=== PATIENT | female | born 2000 | race African-American/Black ===

== ENCOUNTER 2020-09-25 20:31 | Emergency (ER) | payer OTHER, SELFPAY ==
--- NOTE | ~2020-09-25 | US_ITS ---
EXAMINATION: US VENOUS ULTRASOUND WITH DOPPLER LOWER EXTREMITY, RIGHT CLINICAL INFORMATION: Right lower extremity pain COMPARISON: None TECHNIQUE: Ultrasound of the deep veins is performed from the hip to the calf with compression sonography and color and pulse Doppler assessment. Spectral analysis with color-flow imaging is performed. FINDINGS: There is normal venous compression and respiratory variation and augmented flow. The visualized common femoral vein, superficial femoral vein, profunda femoral vein, popliteal vein, and the trifurcation region shows no evidence of deep venous thrombosis. The contralateral left femoral vein appeared normal. There is no significant popliteal fossa cyst. If the patient's symptoms persist, followup ultrasound in 5 days 7 days might be of value to exclude proximal propagation from a non-visualized calf vein. US/US venous duplex LE RT IMPRESSION: No DVT demonstrated in the right lower extremity.
--- NOTE | ~2020-09-25 | XR_ITS ---
EXAMINATION: CHEST 1 VIEW CLINICAL INFORMATION: Chest discomfort. COMPARISON: None. TECHNIQUE: An AP view of the chest is provided. FINDINGS: The cardiac silhouette is not enlarged. The mediastinal and hilar contours are unremarkable. There are neither pleural effusions nor pneumothoraces. There are no consolidations. The osseous structures are unremarkable. XR/XR chest 1V IMPRESSION: No evidence for acute disease.
[2020-09-25 20:34] VITALS: BP 193/85; PULSE 77; RESP 18; TEMP 36.9; O2SAT 98; BMI 47.2
--- NOTE | 2020-09-25 21:48 | ECG_ITS ---
Test Reason : RULE OUT Blood Pressure : / mmHG Vent. Rate : 067 BPM Atrial Rate : 067 BPM P-R Int : 170 ms QRS Dur : 080 ms QT Int : 424 ms P-R-T Axes : 022 015 004 degrees QTc Int : 448 ms Normal sinus rhythm Normal ECG No previous ECGs available Referred By: Garrison Sanchez Electronically Signed By:Shailesh Mohamud
[2020-09-25 23:49] LABS: Basophils Absolute Auto 0.1 X10*3/uL (0.0-0.2); Basophils Percent Auto 0.5 % (0-2); Lymphocytes Absolute Auto 5.3 X10*3/uL (1.2-4.9); MANUAL DIFF FLAG SCAN; PLT CLUMP 1; SCAN SMEAR FLAG 1
[2020-09-25 23:51] LABS: Eosinophils Absolute Auto 0.2 X10*3/uL (0.0-0.4); Eosinophils Percent Auto 1.6 % (0-4); Hemoglobin 13.1 g/dl (12.0-16.0); Imm Gran Abs Auto 0.02 X10*3/uL (0.00-0.03); Imm Gran Pct Auto 0.2 % (0.0-0.4); Lymphocytes Percent Auto 51.5 % (20-40); Mean Corpuscular HGB Conc 32.8 g/dl (31.0-35.0); Mean Corpuscular Hemoglobin 27.4 pg (27.0-33.0); Mean Corpuscular Volume 83.7 fL (80-98); Mean Platelet Volume 10.6 fL (9.4-12.3); Monocytes Absolute Auto 0.5 X10*3/uL (0.1-1.2); Neutrophils Absolute Auto 4.3 X10*3/uL (2.0-8.3); Neutrophils Percent Auto 41.2 % (45-73); Platelet Count 276 X10*3/uL (160-400); Red Blood Count 4.78 X10*6/uL (4.20-5.50); Red Cell Distribution Width 12.3 % (11.0-16.0); White Blood Count 10.4 X10*3/uL (4.8-10.8)
[2020-09-25 23:56] LABS: Prothrombin Time 11.7 SEC (10.8-13.0)
[2020-09-25 23:58] LABS: Partial Thromboplastin Time 28.2 SEC (24.1-38.0)
[2020-09-26 00:08] LABS: SLIDE REVIEW VERIFIED
[2020-09-26 00:21] LABS: Alanine Aminotransferase 26 U/L (0-31); Albumin Level 4.3 g/dL (3.5-5.0); Alkaline Phosphatase 58 U/L (39-117); Anion Gap 14 (12-20); Aspartate Amino Transferase 15 U/L (5-31); Bilirubin Total 0.5 mg/dL (0.0-1.0); Blood Urea Nitrogen 13 mg/dL (9-16); Calcium 9.2 mg/dL (8.4-10.2); Carbon Dioxide 23 mmol/L (22-29); Chloride 106 mmol/L (96-108); Creatinine Clr Calc Pharmacy 181.6; Estimated Glomerular Filt Rate > 60; Glucose Random 88 mg/dL (60-115); Potassium 4.1 mmol/L (3.3-5.1); Sodium 139 mmol/L (135-145); Total Protein 6.9 g/dL (6.5-8.0)
[2020-09-26 00:24] LABS: Troponin-I High Sensitivity < 3.5 ng/L (<3.5-17.0)
[2020-09-26 00:27] LABS: HCG Quantitative < 2 mIU/mL
[2020-09-26 01:16] VITALS: BP 153/81; PULSE 65; RESP 18; TEMP 36.9; O2SAT 98
[2020-09-26 01:21] LABS: D Dimer < 200 NG/ML
--- NOTE | 2020-09-26 02:05 | ED.GENADULT ---
HPI - General Adult General Chief complaint: Extremity Problem Stated complaint: Leg pain Time Seen by Provider: 09/25/20 22:07 Source: patient Mode of arrival: ambulatory Limitations: no limitations History of Present Illness HPI narrative: Patient presents to ED for right calf/cramping pain and also posterior right thigh pain tingling down leg for the past 2 days. Patient states also stating yesterday having some strange feeling in her chest not really pain but more tightness/palpitations. Patient thought maybe was more due to anxiety. Patient denies any shortness of breath, coughing up blood, fever, chills, or any recent trauma to lower extremities or chest. Related Data Allergies Allergy/AdvReac Type Severity Reaction Status Date / Time No Known Allergies Allergy Verified 09/25/20 20:38 Review of Systems Review of Systems: Yes all other systems are reviewed and are negative Constitutional: Constitutional: Reports as per HPI and Reports no additional constitutional complaints Eyes: Eyes: Reports as per HPI and Reports no additional eye complaints ENT: Reports system reviewed and no additional complaints, except as documented and Reports as per HPI Cardiovascular: Cardiovascular: Reports as per HPI and Reports no additional cardiovascular complaints Comments: Chest discomfort Respiratory: Respiratory: Reports as per HPI and Reports no additional respiratory complaints Gastrointestinal: Gastrointestinal: Reports as per HPI and Reports no additional gastrointestinal complaints Genitourinary: Genitourinary: Reports no additional female genitourinary complaints and Reports as per HPI Musculoskeletal: Musculoskeletal: Reports no additional musculoskeletal complaints and Reports as per HPI Neurologic: Reports system reviewed and no additional complaints, except as documented and Reports as per HPI Psychiatric: Psychiatric: Reports no additional psychiatric complaints and Reports as per HPI [facility] Social History Social History Alcohol intake: never Smoking Status: Current every day smoker Substance Use Type: Former Substance User Advance Directives: No Advance Directives Information Provided: No Physical Exam Vital Signs: Vital Signs: Last Vital Signs Temp 98.5 F 09/26/20 01:16 Pulse 65 09/26/20 01:16 Resp 18 09/26/20 01:16 BP 153/81 H 09/26/20 01:16 Pulse Ox 98 09/26/20 01:16 Body Mass Index 47.2 Const: General: cooperative, healthy appearing, comfortable, no acute distress, well developed, alert, awake and Physically active Orientation/consciousness: patient oriented x3 HENMT: Head: Yes normal to inspection, Yes No palpable skull fracture present, Yes normocephalic and Yes atraumatic Eyes: General: appearance normal, both eyes and all related structures Neck: Neck: Yes normal visual inspection, Yes full ROM, Yes no lymphadenopathy, Yes no meningeal signs, Yes trachea midline, Yes supple and No tender Chest: Chest palpation & inspection: normal inspection of the chest and normal palpation of entire chest wall Resp: Effort & Inspection: normal respiratory effort and able to speak in complete sentences Auscultation: clear to auscultation bilaterally Cardio: Jugular venous distension: no JVD Heart sounds: S1 normal heart sound present and S2 normal heart sound present GI: Inspection: Yes normal to inspection and No abdominal wall ecchymosis Palpation (GI): Soft to palpation, not firm, nontender, no guarding and not rigid : General: No CVA tenderness and Yes no CVA tenderness Back/Spine/Pelvis: Back: no CVA tenderness, No CVA tenderness and No back tenderness Skin: General skin exam: no rashes or lesions noted and elasticity normal Neuro: General: patient oriented x3, no meningeal signs and CN's II-XI intact bilaterally Cranial nerves: Yes CN's II-XII intact bilaterally Extrem: Other: Right lower extremity negative for any calf pain/redness/swelling/pitting edema. Pedal pulses intact. Negative for any ecchymosis or crepitus to indicate any trauma General: Yes normal to inspection and Yes full ROM Psych: Appearance: grossly normal, well kempt and not disheveled Course Course Course Narrative: Due to patient stating right calf pain patient will be sent for ultrasound to rule out DVT. Patient also EKG, chest x-ray and troponin. Reevaluation(s) Reevaluation #1: Patient's troponin came back negative. D-dimer negative. Perc score 0. Ultrasound of lower extremity negative for DVT. Chest x-ray negative for pneumonia. Medical Decision Making MDM Narrative Medical decision making narrative: Sciatica. Chest pain Lab Data Result diagrams: 09/25/20 23:44 09/25/20 23:44 Labs: Lab Results 09/25/20 09/25/20 09/25/20 Range/Units 23:44 23:44 23:44 WBC 10.4 (4.8-10.8) X10*3/uL RBC 4.78 (4.20-5.50) X10*6/uL Hgb 13.1 (12.0-16.0) g/dl Hct 40.0 (37-47) % MCV 83.7 (80-98) fL MCH 27.4 (27.0-33.0) pg MCHC 32.8 (31.0-35.0) g/dl RDW 12.3 (11.0-16.0) % Plt Count 276 (160-400) X10*3/uL MPV 10.6 (9.4-12.3) fL Immature Gran % (Auto) 0.2 (0.0-0.4) % Neut % (Auto) 41.2 L (45-73) % Lymph % (Auto) 51.5 H (20-40) % Sandoval % (Auto) 5.0 (2-11) % Eos % (Auto) 1.6 (0-4) % Baso % (Auto) 0.5 (0-2) % Lymph # (Auto) 5.3 H (1.2-4.9) X10*3/uL Sandoval # (Auto) 0.5 (0.1-1.2) X10*3/uL Eos # (Auto) 0.2 (0.0-0.4) X10*3/uL Baso # (Auto) 0.1 (0.0-0.2) X10*3/uL Abs Immat Gran (auto) 0.02 (0.00-0.03) X10*3/uL Absolute Neuts (auto) 4.3 (2.0-8.3) X10*3/uL Absolute Nucleated RBC 0.000 (0.0-0.012) X10*3/uL Nucleated RBC % (auto) 0.0 (0.0-0.2) /100WBC Smear Tech's Comments VERIFIED PT 11.7 (10.8-13.0) SEC INR 1.0 (0.9-1.1) APTT 28.2 (24.1-38.0) SEC D-Dimer TNP Sodium (135-145) mmol/L Potassium (3.3-5.1) mmol/L Chloride (96-108) mmol/L Carbon Dioxide (22-29) mmol/L Anion Gap (12-20) BUN (9-16) mg/dL Creatinine (0.5-1.4) mg/dL Estim Creat Clear Calc Estimated GFR Random Glucose (60-115) mg/dL Calcium (8.4-10.2) mg/dL Total Bilirubin (0.0-1.0) mg/dL AST (5-31) U/L ALT (0-31) U/L Alkaline Phosphatase (39-117) U/L Troponin I High Sens < 3.5 (<3.5-17.0) ng/L Total Protein (6.5-8.0) g/dL Albumin (3.5-5.0) g/dL Beta HCG, Quant mIU/mL 09/25/20 09/26/20 Range/Units 23:44 01:06 WBC (4.8-10.8) X10*3/uL RBC (4.20-5.50) X10*6/uL Hgb (12.0-16.0) g/dl Hct (37-47) % MCV (80-98) fL MCH (27.0-33.0) pg MCHC (31.0-35.0) g/dl RDW (11.0-16.0) % Plt Count (160-400) X10*3/uL MPV (9.4-12.3) fL Immature Gran % (Auto) (0.0-0.4) % Neut % (Auto) (45-73) % Lymph % (Auto) (20-40) % Sandoval % (Auto) (2-11) % Eos % (Auto) (0-4) % Baso % (Auto) (0-2) % Lymph # (Auto) (1.2-4.9) X10*3/uL Sandoval # (Auto) (0.1-1.2) X10*3/uL Eos # (Auto) (0.0-0.4) X10*3/uL Baso # (Auto) (0.0-0.2) X10*3/uL Abs Immat Gran (auto) (0.00-0.03) X10*3/uL Absolute Neuts (auto) (2.0-8.3) X10*3/uL Absolute Nucleated RBC (0.0-0.012) X10*3/uL Nucleated RBC % (auto) (0.0-0.2) /100WBC Smear Tech's Comments PT (10.8-13.0) SEC INR (0.9-1.1) APTT (24.1-38.0) SEC D-Dimer < 200 Sodium 139 (135-145) mmol/L Potassium 4.1 (3.3-5.1) mmol/L Chloride 106 (96-108) mmol/L Carbon Dioxide 23 (22-29) mmol/L Anion Gap 14 (12-20) BUN 13 (9-16) mg/dL Creatinine 0.75 (0.5-1.4) mg/dL Estim Creat Clear Calc 181.6 Estimated GFR > 60 Random Glucose 88 (60-115) mg/dL Calcium 9.2 (8.4-10.2) mg/dL Total Bilirubin 0.5 (0.0-1.0) mg/dL AST 15 (5-31) U/L ALT 26 (0-31) U/L Alkaline Phosphatase 58 (39-117) U/L Troponin I High Sens (<3.5-17.0) ng/L Total Protein 6.9 (6.5-8.0) g/dL Albumin 4.3 (3.5-5.0) g/dL Beta HCG, Quant < 2 mIU/mL ECG Data Interpretation: Normal sinus rhythm. Normal EKG. Ventricular rate 67. Pr interval 170. QRS 80. QTC 448. Negative STEMI Discharge Plan Discharge Clinical Impression: Acute leg pain, Sciatica, Chest pain Patient Disposition: Home, Self-Care Instructions: Chest Pain (ED), Sciatica (ED), Leg Pain (ED) Additional Instructions: Return to the ED immediately for any chest pain, shortness of breath swelling of lower extremity, calf pain, redness, coughing up blood, fever, chills, or any other concerning symptoms. you can take [id number] Motrin/Aleve/Tylenol. Please follow-up with PCP. Ultrasound negative for DVT. Chest x-ray negative for pneumonia. Troponin negative. D-dimer negative. EKG normal Blood pressure was elevated during the ED visit improved without medication. please follow-up with PCP Print Language: Chinese
== END 2020-09-26 03:12 | disposition home or self-care (01) ==
PROVIDERS: Physician Assistant; Emergency Provider Emergency Medicine Emergency Medical Services
DX: M79.604 Pain in right leg (principal); M54.32 Sciatica, left side; M54.31 Sciatica, right side; R07.9 Chest pain, unspecified; R60.0 Localized edema; F17.200 Nicotine dependence, unspecified, uncomplicated; Z71.6 Tobacco abuse counseling
CPT/HCPCS: 36415; 71045; 80053; 84484; 84702; 85025; 85379; 85610; 85730; 93005; 93971; 99284

== ENCOUNTER 2020-11-25 14:14 | Emergency (ER) | payer OTHER, SELFPAY ==
--- NOTE | ~2020-11-25 | XR_ITS ---
EXAMINATION: XR CHEST CLINICAL INFORMATION: Chest pain COMPARISON: Previous chest x-ray August 2020 TECHNIQUE: Frontal view of the chest was obtained. FINDINGS: No significant abnormality is noted involving the heart, lungs, mediastinum, bony thorax or soft tissues. XR/XR chest 1V IMPRESSION: Unremarkable examination.
--- NOTE | 2020-11-25 14:27 | ECG_ITS ---
Test Reason : HEART PALPITATION Blood Pressure : / mmHG Vent. Rate : 080 BPM Atrial Rate : 080 BPM P-R Int : 162 ms QRS Dur : 072 ms QT Int : 366 ms P-R-T Axes : 049 031 008 degrees QTc Int : 422 ms Normal sinus rhythm Normal ECG When compared with ECG of 26-SEP-2020 02:42, No significant change was found Referred By: Generic ED Physician Electronically Signed By:FEROZ UGARTE
[2020-11-25 14:50] VITALS: BP 132/79; PULSE 81; RESP 18; TEMP 36.2; O2SAT 100; BMI 46.9
[2020-11-25 17:32] LABS: MANUAL DIFF FLAG NO
[2020-11-25 17:45] LABS: Basophils Absolute Auto 0.1 X10*3/uL (0.0-0.2); Basophils Percent Auto 0.5 % (0-2); Eosinophils Absolute Auto 0.1 X10*3/uL (0.0-0.4); Eosinophils Percent Auto 1.1 % (0-4); Hematocrit 39.9 % (37-47); Hemoglobin 12.9 g/dl (12.0-16.0); Imm Gran Abs Auto 0.04 X10*3/uL (0.00-0.03); Imm Gran Pct Auto 0.4 % (0.0-0.4); Lymphocytes Absolute Auto 3.9 X10*3/uL (1.2-4.9); Lymphocytes Percent Auto 36.2 % (20-40); Mean Corpuscular HGB Conc 32.3 g/dl (31.0-35.0); Mean Corpuscular Hemoglobin 27.2 pg (27.0-33.0); Mean Corpuscular Volume 84.2 fL (80-98); Mean Platelet Volume 10.9 fL (9.4-12.3); Monocytes Absolute Auto 0.5 X10*3/uL (0.1-1.2); Monocytes Percent Auto 5.1 % (2-11); Neutrophils Absolute Auto 6.1 X10*3/uL (2.0-8.3); Neutrophils Percent Auto 56.7 % (45-73); Platelet Count 399 X10*3/uL (160-400); Red Blood Count 4.74 X10*6/uL (4.20-5.50); Red Cell Distribution Width 12.6 % (11.0-16.0); White Blood Count 10.7 X10*3/uL (4.8-10.8)
--- NOTE | 2020-11-25 17:50 | ED.CHESTPAIN ---
HPI - Chest Pain General Chief Complaint: Chest Pain Stated Complaint: chest pain Time Seen by Provider: 11/25/20 17:50 Source: patient Mode of arrival: ambulatory Limitations: no limitations History of Present Illness HPI narrative: Patient is 20 years old with no significant past medical history obese weighing 144 kg comes here for left-sided chest pain for last few days tender to palpation get worse when taking a deep breath or touches no fever no cough no shortness of breath. No family history of sudden cardiac or [place] at younger age no use of cocaine Related Data Previous Rx's Medication Instructions Recorded ibuprofen 600 mg PO Q6H PRN #20 tab 11/25/20 Allergies Allergy/AdvReac Type Severity Reaction Status Date / Time No Known Allergies Allergy Verified 09/25/20 20:38 Review of Systems Review of Systems: Constitutional : No Weight loss, No Fever, No Chills ENT/Mouth : No sore throat, No Rhinorrhea Eyes: No Eye Pain, No Swelling Cardiovascular : + Chest Pain, no palpitations Respiratory : No Cough, No Sputum, no shortness of breath Gastrointestinal : no Nausea, No Vomiting, No Diarrhea, No abdominal Pain, no black stools Genitourinary : No Dysuria, No Urinary Frequency Musculoskeletal : No joint pain, No Myalgias, No Joint Swelling Skin : No Skin Lesions, No rash Neuro : No Weakness, No Numbness, No Dizziness, No Headache Psych : No Anxiety/Panic, No Depression Heme/Lymph: No Bruising, No Lymphadenopathy Endocrine : No Polyuria, No Polydipsia All other systems reviewed and are negative PMFSH Past Medical History Medical History Patient denies medical problems Social History Social History Alcohol intake: never Substance Use Type: Former Substance User Advance Directives: No Advance Directives Information Provided: Yes Patient : No Physical Exam Vital Signs: Vital Signs: Last Vital Signs Temp 97.2 F 11/25/20 14:50 Pulse 81 11/25/20 14:50 Resp 18 11/25/20 14:50 BP 132/79 11/25/20 14:50 Pulse Ox 100 11/25/20 14:50 Body Mass Index 46.9 Appearance: Alert. Oriented X3. No acute distress. Eyes: PERRLA, No Nystagmus ENT: Pharynx normal. Oral Mucosa moist Neck: Normal inspection. Neck supple. CVS: Normal heart rate and rhythm. Pulses normal. Left chest wall tenderness+ Respiratory: No respiratory distress. Equal air entry bilateral, no wheezing/rales/rhonchi Abdomen: Soft and nontender. Bowel sounds are present, no mass palpable, no CVA tenderness Skin: Skin warm and dry. Normal skin color. Normal skin turgor. Extremities: No lower extremity edema. No calf tenderness Neuro: Oriented X 3. No motor deficit. No sensory deficit.No cerebellar signs , cranial nerves II-XII intact MDM - Chest Pain Lab Data Attestation: I reviewed the patient's lab results. Result diagrams: 11/25/20 17:10 11/25/20 17:10 Labs: Lab Results 11/25/20 11/25/20 Range/Units 17:10 17:10 WBC 10.7 (4.8-10.8) X10*3/uL RBC 4.74 (4.20-5.50) X10*6/uL Hgb 12.9 (12.0-16.0) g/dl Hct 39.9 (37-47) % MCV 84.2 (80-98) fL MCH 27.2 (27.0-33.0) pg MCHC 32.3 (31.0-35.0) g/dl RDW 12.6 (11.0-16.0) % Plt Count 399 D (160-400) X10*3/uL MPV 10.9 (9.4-12.3) fL Immature Gran % (Auto) 0.4 (0.0-0.4) % Neut % (Auto) 56.7 (45-73) % Lymph % (Auto) 36.2 (20-40) % Lewis % (Auto) 5.1 (2-11) % Eos % (Auto) 1.1 (0-4) % Baso % (Auto) 0.5 (0-2) % Lymph # (Auto) 3.9 (1.2-4.9) X10*3/uL Lewis # (Auto) 0.5 (0.1-1.2) X10*3/uL Eos # (Auto) 0.1 (0.0-0.4) X10*3/uL Baso # (Auto) 0.1 (0.0-0.2) X10*3/uL Abs Immat Gran (auto) 0.04 H (0.00-0.03) X10*3/uL Absolute Neuts (auto) 6.1 (2.0-8.3) X10*3/uL Absolute Nucleated RBC 0.000 (0.0-0.012) X10*3/uL Nucleated RBC % (auto) 0.0 (0.0-0.2) /100WBC Hold Blue Top SEE NOTE ECG Data ECG #1: Attestation: I personally reviewed and interpreted this ECG as follows: Interpretation: Normal sinus rhythm with heart rate 80 beats per minute normal intervals normal axis no acute ischemia Discharge Plan Discharge Clinical Impression: Acute costochondritis Patient Disposition: Home, Self-Care Instructions: Costochondritis (ED) Additional Instructions: Take ibuprofen as advised Prescriptions: New ibuprofen 600 mg tablet 600 mg PO Q6H PRN (Reason: pain) Qty: 20 RF: 0
[2020-11-25 18:05] LABS: Anion Gap 13 (12-20); Blood Urea Nitrogen 13 mg/dL (9-16); Calcium 9.7 mg/dL (8.4-10.2); Carbon Dioxide 23 mmol/L (22-29); Chloride 109 mmol/L (96-108); Creatinine Clr Calc Pharmacy 183.3; Estimated Glomerular Filt Rate > 60; Glucose Random 90 mg/dL (60-115); Potassium 4.1 mmol/L (3.3-5.1); Sodium 141 mmol/L (135-145)
[2020-11-25 18:10] LABS: Troponin-I High Sensitivity < 3.5 ng/L (<3.5-17.0)
--- NOTE | 2020-11-25 18:15 | PC.NURSE ---
Patient left before discharge instructions paperwork could be given.
== END 2020-11-25 18:15 | disposition home or self-care (01) ==
PROVIDERS: Emergency Provider Internal Medicine
DX: M94.0 Chondrocostal junction syndrome [Tietze] (principal); E66.9 Obesity, unspecified; F17.210 Nicotine dependence, cigarettes, uncomplicated
CPT/HCPCS: 36415; 71045; 80048; 84484; 85025; 93005; 99283

== ENCOUNTER 2020-11-26 12:31 | Emergency (ER) | payer OTHER, SELFPAY ==
--- NOTE | 2020-11-26 | ECG_ITS ---
Test Reason : CP Blood Pressure : / mmHG Vent. Rate : 070 BPM Atrial Rate : 070 BPM P-R Int : 158 ms QRS Dur : 072 ms QT Int : 396 ms P-R-T Axes : 035 035 013 degrees QTc Int : 427 ms Normal sinus rhythm with sinus arrhythmia Normal ECG When compared with ECG of 25-NOV-2020 14:27, No significant change was found Referred By: Generic ED Physician Electronically Signed By:FEROZ UGARTE
[2020-11-26 12:50] VITALS: BP 128/88; PULSE 83; RESP 19; TEMP 35.9; O2SAT 99; BMI 47.2
--- NOTE | 2020-11-26 14:17 | ED_ITS ---
HPI - General Adult General Chief complaint: General Medical Stated complaint: mutiple complaints Time Seen by Provider: 11/26/20 13:59 Source: patient Mode of arrival: ambulatory Limitations: no limitations History of Present Illness HPI narrative: 20-year-old female morbidly obese here with complaints of intermittent chest pain with associated palpitations which occur with activity x3 days. Also complaining of pain which has been intermittent for several months to years which feels similar but she does state that this is been occurring more frequently in the last 3 days. She is also complaining of intermittent numbness and tingling in her hands and feet some cramps in her lower legs bilaterally. No associated nausea, vomiting, diaphoresis, shortness of breath or cough. No recent travel or sick contacts. No family history of SCD. No family history of blood clots. No ICP use. Patient does admit to anxiety/stress over the last year with the pandemic. Does not currently have a primary care doctor. Seen here yesterday for same and diagnosed with costochondritis ever having a chest x-ray, EKG and labs. Related Data Previous Rx's Medication Instructions Recorded ibuprofen 600 mg PO Q6H PRN #20 tab 11/25/20 Allergies Allergy/AdvReac Type Severity Reaction Status Date / Time No Known Allergies Allergy Verified 09/25/20 20:38 Review of Systems Review of Systems: Yes all other systems are reviewed and are negative Constitutional: Constitutional: Reports no additional constitutional complaints, Denies body ache(s), Denies chills, Denies fever(s), Denies headache(s) and Denies weakness Eyes: Eyes: Reports no additional eye complaints and Denies change in vision ENT: Reports system reviewed and no additional complaints, except as docum ented, Denies dizziness, Denies headache(s), Denies nasal congestion, Denies nasal discharge and Denies neck pain Cardiovascular: Cardiovascular: Reports no additional cardiovascular complaints, Reports chest pain, Denies leg edema, Reports palpitations and Denies dyspnea Respiratory: Respiratory: Reports no additional respiratory complaints, Denies cough and Denies dyspnea Gastrointestinal: Gastrointestinal: Reports no additional gastrointestinal complaints, Denies abdominal pain, Denies diarrhea, Denies nausea and Denies vomiting Genitourinary: Genitourinary: Reports no additional female genitourinary complaints and Denies urinary incontinence Musculoskeletal: Musculoskeletal: Reports no additional musculoskeletal complaints, Denies back pain, Denies arthralgias, Denies joint swelling, Reports muscle cramps, Denies neck pain, Reports numbness and Denies tingling Integumentary/Breasts: Skin/Breast: Reports system reviewed and no additional complaints, except as docu and Denies rash Neurologic: Reports system reviewed and no additional complaints, except as documented, Denies Abnormal speech present, Denies dizziness, Denies headache(s), Reports numbness, Denies tingling and Denies weakness Endocrine: Endocrine: Reports palpitations PMFSH Past Medical History Attestation statement: The following information was validated with the patient. Source: old records reviewed and nursing notes reviewed Medical History Patient denies medical problems Social History Social History Alcohol intake: never Patient Tobacco Use Status: Current everyday Tobacco user Smoked in Last 30 Days: Yes Use of substances other than those prescribed or required for medical reasons: No Substance Use Type: Former Substance User Advance Directives: Yes Advance Directives Information Provided: Yes Advance Directives on File: No Patient : No Physical Exam Vital Signs: Vital Signs: Last Vital Signs Temp 98.7 F 11/26/20 15:09 Pulse 66 11/26/20 15:09 Resp 20 11/26/20 15:09 BP 127/73 11/26/20 15:09 Pulse Ox 99 11/26/20 15:09 Body Mass Index 47.2 Const: General: cooperative, healthy appearing, comfortable and no acute distress Orientation/consciousness: patient oriented x3 Limitations: no limitations HENMT: Head: Yes normal to inspection Ears: hearing grossly normal bilater ally General nose exam: Normal external nose present Face and sinus: Yes normal facial exam Mouth: Normal oral and palatal mucosa present Throat: Yes posterior oropharynx normal Eyes: General: appearance normal, both eyes and all related structures Pupils: Equal, round and reactive pupils present Neck: Neck: Yes normal visual inspection Chest: Other: Left chest tender to palpate Chest palpation & inspection: normal inspection of the chest Resp: Effort & Inspection: normal respiratory effort Auscultation: clear to auscultation bilaterally Cardio: Rate: regular rate Rhythm: regular rhythm Peripheral pulses: Peripheral pulses 2+ throughout GI: Inspection: Yes normal to inspection Palpation (GI): Soft to palpation and nontender Auscultation: normal bowel sounds Back/Spine/Pelvis: Thoracic/Lumbar Spine: thoracic and lumbar spine normal to inspection Skin: General skin exam: no rashes or lesions noted Neuro: General: patient oriented x3, no focal motor deficits and normal sensation to monofilament Cranial nerves: Yes Equal, round and reactive pupils present Cognition (Neuro): normal cognition Speech: No Abnormal speech present Gait exam (Neuro): Normal gait present Motor exam (neuro): 5/5 motor strength present throughout Extrem: General: Yes normal to inspection, Yes no pedal edema and Yes no calf tenderness Course Course Course Narrative: 20-year-old female here with left-sided chest discomfort which is reproducible with associated palpitations which occurs with movement over the last 3 days although it appears this is been going on for much longer. Patient also complaining of some numbness in the hands and feet with associated symptoms as well as muscle cramps. Seems more consistent with anxiety. Patient was seen here yesterday with negative x-ray, EKG and labs. Diagnosed with costochondritis and sent home. Will need labs, EKG. 1540-EKG shows no ischemic changes. Labs are all unremarkable. Discussed findings with the patient. I recommended she follow-up with her primary care doctor for further testing is needed. Reviewed worrisome signs and symptoms and when to return to the emergency department. Comfortable discharge home. Medical Decision Making MDM Narrative Medical decision making narrative: Less likely ACS with symptoms greater than 3 days with negative troponin and EKG Left likely PE with negative D-dimer and negative PERC score Medical Records Medical records reviewed: Yes I reviewed the patient's medical records. Lab Data Lab results reviewed: Yes I reviewed the patient's lab results. Result diagrams: 11/26/20 14:18 11/26/20 14:18 Labs: Lab Results 11/26/20 11/26/20 11/26/20 Range/Units 14:18 14:18 14:18 WBC 9.4 (4.8-10.8) X10*3/uL RBC 4.66 (4.20-5.50) X10*6/uL Hgb 12.8 (12.0-16.0) g/dl Hct 39.4 (37-47) % MCV 84.5 (80-98) fL MCH 27.5 (27.0-33.0) pg MCHC 32.5 (31.0-35.0) g/dl RDW 12.5 (11.0-16.0) % Plt Count 420 H (160-400) X10*3/uL MPV 9.9 (9.4-12.3) fL Immature Gran % (Auto) 0.2 (0.0-0.4) % Neut % (Auto) 56.6 (45-73) % Lymph % (Auto) 36.6 (20-40) % Mccone % (Auto) 4.9 (2-11) % Eos % (Auto) 1.2 (0-4) % Baso % (Auto) 0.5 (0-2) % Lymph # (Auto) 3.4 (1.2-4.9) X10*3/uL Mccone # (Auto) 0.5 (0.1-1.2) X10*3/uL Eos # (Auto) 0.1 (0.0-0.4) X10*3/uL Baso # (Auto) 0.1 (0.0-0.2) X10*3/uL Abs Immat Gran (auto) 0.02 (0.00-0.03) X10*3/uL Absolute Neuts (auto) 5.3 (2.0-8.3) X10*3/uL Absolute Nucleated RBC 0.000 (0.0-0.012) X10*3/uL Nucleated RBC % (auto) 0.0 (0.0-0.2) /100WBC D-Dimer < 200 NG/ML Sodium 141 (135-145) mmol/L Potassium 4.0 (3.3-5.1) mmol/L Chloride 109 H (96-108) mmol/L Carbon Dioxide 22 (22-29) mmol/L Anion Gap 14 (12-20) BUN 14 (9-16) mg/dL Creatinine 0.76 (0.5-1.4) mg/dL Estim Creat Clear Calc 179.2 Estimated GFR > 60 Random Glucose 85 (60-115) mg/dL Calcium 9.3 (8.4-10.2) mg/dL Magnesium 2.0 (1.6-2.6) mg/dL Total Bilirubin 0.5 (0.0-1.0) mg/dL Direct Bilirubin 0.2 (0.0-0.5) mg/dL AST 13 (5-31) U/L ALT 23 (0-31) U/L Alkaline Phosphatase 71 D (39-117) U/L Troponin I High Sens (<3.5-17.0) ng/L Total Protein 7.1 (6.5-8.0) g/dL Albumin 4.4 (3.5-5.0) g/dL TSH 1.19 (0.32-4.0) uIU/mL 11/26/20 Range/Units 14:18 WBC (4.8-10.8) X10*3/uL RBC (4.20-5.50) X10*6/uL Hgb (12.0-16.0) g/dl Hct (37-47) % MCV (80-98) fL MCH (27.0-33.0) pg MCHC (31.0-35.0) g/dl RDW (11.0-16.0) % Plt Count (160-400) X10*3/uL MPV (9.4-12.3) fL Immature Gran % (Auto) (0.0-0.4) % Neut % (Auto) (45-73) % Lymph % (Auto) (20-40) % Mccone % (Auto) (2-11) % Eos % (Auto) (0-4) % Baso % (Auto) (0-2) % Lymph # (Auto) (1.2-4.9) X10*3/uL Mccone # (Auto) (0.1-1.2) X10*3/uL Eos # (Auto) (0.0-0.4) X10*3/uL Baso # (Auto) (0.0-0.2) X10*3/uL Abs Immat Gran (auto) (0.00-0.03) X10*3/uL Absolute Neuts (auto) (2.0-8.3) X10*3/uL Absolute Nucleated RBC (0.0-0.012) X10*3/uL Nucleated RBC % (auto) (0.0-0.2) /100WBC D-Dimer NG/ML Sodium (135-145) mmol/L Potassium (3.3-5.1) mmol/L Chloride (96-108) mmol/L Carbon Dioxide (22-29) mmol/L Anion Gap (12-20) BUN (9-16) mg/dL Creatinine (0.5-1.4) mg/dL Estim Creat Clear Calc Estimated GFR Random Glucose (60-115) mg/dL Calcium (8.4-10.2) mg/dL Magnesium (1.6-2.6) mg/dL Total Bilirubin (0.0-1.0) mg/dL Direct Bilirubin (0.0-0.5) mg/dL AST (5-31) U/L ALT (0-31) U/L Alkaline Phosphatase (39-117) U/L Troponin I High Sens < 3.5 (<3.5-17.0) ng/L Total Protein (6.5-8.0) g/dL Albumin (3.5-5.0) g/dL TSH (0.32-4.0) uIU/mL ECG Data Attestation: I personally reviewed and interpreted this ECG as follows: Interpretation: Normal sinus rhythm with a rate of 70, normal [place], normal QRS, normal QT Discharge Plan Discharge Clinical Impression: Atypical chest pain Patient Disposition: Home, Self-Care Instructions: Chest Pain (ED) Additional Instructions: Your test all looked normal today Follow up with the primary care doctor as he may need additional testing done. Limit caffeine intake Prescriptions: No Action ibuprofen 600 mg tablet 600 mg PO Q6H PRN (Reason: pain) Qty: 20 RF: 0 Referrals: Physician,Unknown [Primary Care Provider] - 2 days Interventions: ED Discharge Assessment Last Done: 11/26/20 15:31 Discharge Date/Time: 11/26/20 15:31
[2020-11-26 14:22] LABS: MANUAL DIFF FLAG NO
[2020-11-26 14:26] LABS: Basophils Absolute Auto 0.1 X10*3/uL (0.0-0.2); Basophils Percent Auto 0.5 % (0-2); Eosinophils Absolute Auto 0.1 X10*3/uL (0.0-0.4); Eosinophils Percent Auto 1.2 % (0-4); Hematocrit 39.4 % (37-47); Hemoglobin 12.8 g/dl (12.0-16.0); Imm Gran Abs Auto 0.02 X10*3/uL (0.00-0.03); Imm Gran Pct Auto 0.2 % (0.0-0.4); Lymphocytes Absolute Auto 3.4 X10*3/uL (1.2-4.9); Lymphocytes Percent Auto 36.6 % (20-40); Mean Corpuscular HGB Conc 32.5 g/dl (31.0-35.0); Mean Corpuscular Hemoglobin 27.5 pg (27.0-33.0); Mean Corpuscular Volume 84.5 fL (80-98); Mean Platelet Volume 9.9 fL (9.4-12.3); Monocytes Absolute Auto 0.5 X10*3/uL (0.1-1.2); Monocytes Percent Auto 4.9 % (2-11); Neutrophils Absolute Auto 5.3 X10*3/uL (2.0-8.3); Neutrophils Percent Auto 56.6 % (45-73); Platelet Count 420 X10*3/uL (160-400); Red Blood Count 4.66 X10*6/uL (4.20-5.50); Red Cell Distribution Width 12.5 % (11.0-16.0); White Blood Count 9.4 X10*3/uL (4.8-10.8)
[2020-11-26 14:38] LABS: D Dimer < 200 NG/ML
[2020-11-26 14:54] LABS: Alanine Aminotransferase 23 U/L (0-31); Albumin Level 4.4 g/dL (3.5-5.0); Alkaline Phosphatase 71 U/L (39-117); Anion Gap 14 (12-20); Aspartate Amino Transferase 13 U/L (5-31); Bilirubin Direct 0.2 mg/dL (0.0-0.5); Bilirubin Total 0.5 mg/dL (0.0-1.0); Blood Urea Nitrogen 14 mg/dL (9-16); Calcium 9.3 mg/dL (8.4-10.2); Carbon Dioxide 22 mmol/L (22-29); Chloride 109 mmol/L (96-108); Creatinine Clr Calc Pharmacy 179.2; Estimated Glomerular Filt Rate > 60; Glucose Random 85 mg/dL (60-115); Sodium 141 mmol/L (135-145); Total Protein 7.1 g/dL (6.5-8.0)
[2020-11-26 15:00] LABS: Troponin-I High Sensitivity < 3.5 ng/L (<3.5-17.0)
[2020-11-26 15:09] VITALS: BP 127/73; PULSE 66; RESP 20; TEMP 37.1; O2SAT 99
[2020-11-26 15:14] LABS: Thyroid Stimulating Hormone 1.19 uIU/mL (0.32-4.0)
== END 2020-11-26 15:31 | disposition home or self-care (01) ==
PROVIDERS: Nurse Practitioner Family; Emergency Provider Emergency Medicine Emergency Medical Services
DX: R07.89 Other chest pain (principal); R00.2 Palpitations; R25.2 Cramp and spasm; F17.200 Nicotine dependence, unspecified, uncomplicated; Z71.6 Tobacco abuse counseling
CPT/HCPCS: 36415; 80048; 80076; 83735; 84443; 84484; 85025; 85379; 93005; 99284

== ENCOUNTER 2020-12-21 08:54 | Emergency (ER) | payer OTHER, SELFPAY ==
--- NOTE | ~2020-12-21 | US_ITS ---
EXAMINATION: US VENOUS ULTRASOUND WITH DOPPLER LOWER EXTREMITY, RIGHT CLINICAL INFORMATION: Pain right lower extremity. Assess for occult DVT. COMPARISON: Right lower extremity venous ultrasound with Doppler 09/25/2020 TECHNIQUE: Ultrasound of the deep veins is performed from the hip to the calf with compression sonography and color and pulse Doppler assessment. Spectral analysis with color-flow imaging is performed. FINDINGS: There is normal venous compression and respiratory variation and augmented flow. The visualized common femoral vein, superficial femoral vein, profunda femoral vein, popliteal vein, and the trifurcation region shows no evidence of deep venous thrombosis. No popliteal fossa cyst demonstrated. US/US venous duplex LE RT IMPRESSION: No DVT demonstrated in the right lower extremity.
[2020-12-21 09:04] VITALS: BP 128/58; PULSE 71; RESP 18; TEMP 37.2; O2SAT 98
--- NOTE | 2020-12-21 09:36 | ED_ITS ---
HPI - Extremity Injury (Lower) General Chief Complaint: Extremity Injury, Lower <DARA Grant - Last Filed: 12/21/20 16:04> Stated Complaint: rt calf pain <DARA Grant - Last Filed: 12/21/20 16:04> Time Seen by Provider: 12/21/20 09:03 <DARA Grant - Last Filed: 12/21/20 16:04> Source: patient <DARA Garnt - Last Filed: 12/21/20 16:04> Mode of arrival: ambulatory <DARA Grant - Last Filed: 12/21/20 16:04> Limitations: no limitations <DARA Grant - Last Filed: 12/21/20 16:04> History of Present Illness HPI Narrative: 20 y/o female presenting with right calf pain for the last couple of months. She reports no injury or trauma. She states she has frequent muscle pain in her right lower leg and tightening spasms. She reports she can see her muscle twitching when the pain occurs. No redness or warmth, no skin changes. She has been dealing with this for months and had recent normal blood workup at her doctor. <DARA Grant - Last Filed: 12/21/20 16:04> MD complaint: other (calf pain) <DARA Grant - Last Filed: 12/21/20 16:04> Onset (ago): month(s) <DARA Grant - Last Filed: 12/21/20 16:04> Type of Injury: unknown <DARA Grant - Last Filed: 12/21/20 16:04> Severity: mild <DARA Grant - Last Filed: 12/21/20 16:04> Severity scale (1-10): 4 <DARA Grant - Last Filed: 12/21/20 16:04> Relieving factors: nothing <DARA Grant - Last Filed: 12/21/20 16:04> Exacerbating factors: other (night) <DARA Grant - Last Filed: 12/21/20 16:04> Associated symptoms: ambulatory <DARA Grant - Last Filed: 12/21/20 16:04> Other symptoms: none <DARA Grant - Last Filed: 12/21/20 16:04> Related Data Home Medications: Previous Rx's Medication Instructions Recorded ibuprofen 600 mg PO Q6H PRN #20 tab 11/25/20 cyclobenzaprine 5 mg PO BEDTIME PRN #6 tab 12/21/20 <DARA Grant - Last Filed: 12/21/20 16:04> Allergies/Adverse Reactions: Allergies Allergy/AdvReac Type Severity Reaction Status Date / Time No Known Allergies Allergy Verified 09/25/20 20:38 <DARA Grant - Last Filed: 12/21/20 16:04> Review of Systems Review of Systems: Constitutional: No Fever, No Chills s Cardiovascular: No Chest Pain, No SOB Respiratory: No Cough, No Sputum Gastrointestinal: No Nausea, No Vomiting Musculoskeletal: No joint pain, + Myalgias Skin: No Skin Lesions, No rash Neuro: No Weakness, No Numbness Psych: + Anxiety/Panic, No Depression Heme/Lymph: No Bruising, No Lymphadenopathy <DARA Grant - Last Filed: 12/21/20 16:04> [facility] Past Medical History Attestation statement: The following information was validated with the patient. <DARA Grant - Last Filed: 12/21/20 16:04> Medical History: Medical History Patient denies medical problems <DARA Grant - Last Filed: 12/21/20 16:04> Social History Social History: Social History Alcohol intake: never Patient Tobacco Use Status: Current everyday Tobacco user Substance Use Type: Former Substance User <DARA Grant - Last Filed: 12/21/20 16:04> Physical Exam Vital Signs: Vital Signs: Last Vital Signs Temp 98.9 F 12/21/20 09:54 Pulse 71 12/21/20 09:54 Resp 18 12/21/20 09:54 BP 128/58 L 12/21/20 09:54 Pulse Ox 98 12/21/20 09:54 Body Mass Index 46.5 Appearance: Alert. Oriented X3. No acute distress. HEENT: normal inspection CVS: Normal heart rate and rhythm. Pulses normal. Respiratory: No respiratory distress. Skin: Skin warm and dry. Normal skin color. Normal skin turgor. No rashes. Extremities: right calf normal inspection, nontender, no swelling, erythema or warmth. NV intact distally. Neuro: Oriented X 3. No motor deficit. No sensory deficit. Ambulates with steady gait. <DARA Grant - Last Filed: 12/21/20 16:04> Vital Signs: Last Vital Signs Temp 98.9 F 12/21/20 09:54 Pulse 71 12/21/20 09:54 Resp 18 12/21/20 09:54 BP 128/58 L 12/21/20 09:54 Pulse Ox 98 12/21/20 09:54 Body Mass Index 46.5 <José Miguel Sorensen MD - Last Filed: 01/23/21 19:10> Course Course Course Narrative: 20 y/o female presenting with a few months of nontraumatic right calf pain for a few months. She reports what sounds like muscular fasculations, worse at night. Denies dehydration, injury. No hx restless leg syndrome. She has normal blood workup recently. Will get US to r/o DVT. <DARA Grant - Last Filed: 12/21/20 16:04> I have reviewed the chart <José Miguel Sorensen MD - Last Filed: 01/23/21 19:10> Reevaluation(s) Reevaluation #1: LE doppler is negative. Likely muscle strain vs RLS. Will give trial of muscle relaxer and NSAID and have her f/u with her PCP. She agrees with plan. <DARA Grant - Last Filed: 12/21/20 16:04> Critical Care Time Critical Care Time Critical Care Time: No <DARA Grant - Last Filed: 12/21/20 16:04> Discharge Plan Discharge Clinical Impression: Muscle cramping <DARA Grant - Last Filed: 12/21/20 16:04> Patient Disposition: Home, Self-Care <DARA Grant - Last Filed: 12/21/20 16:04> Instructions: Leg Cramps (ED) <DARA Grant - Last Filed: 12/21/20 16:04> Additional Instructions: Your ultrasound was normal. Recommend trial of muscle relaxer at night. Rest and stay hydrated. Follow up with your doctor. If you have any worsening pain or any other concerning symptoms come back to the ER for further evaluation. <DARA Grant - Last Filed: 12/21/20 16:04> Prescriptions: New cyclobenzaprine 5 mg tablet 5 mg PO BEDTIME PRN (Reason: muscle spasm) Qty: 6 RF: 0 No Action ibuprofen 600 mg tablet 600 mg PO Q6H PRN (Reason: pain) Qty: 20 RF: 0 <DARA Grant - Last Filed: 12/21/20 16:04> Interventions: ED Discharge Assessment Last Done: 12/21/20 10:30 <DARA Grant - Last Filed: 12/21/20 16:04> Discharge Date/Time: 12/21/20 10:31 <DARA Grant - Last Filed: 12/21/20 16:04>
[2020-12-21 09:54] VITALS: BP 128/58; PULSE 71; RESP 18; TEMP 37.2; O2SAT 98; BMI 46.5
== END 2020-12-21 10:31 | disposition home or self-care (01) ==
PROVIDERS: Emergency Provider Emergency Medicine
DX: R25.2 Cramp and spasm (principal); M79.661 Pain in right lower leg
CPT/HCPCS: 93971; 99283; 99284

== ENCOUNTER → 2020-12-27 12:57 | Outpatient (REF) | payer OTHER, SELFPAY ==
--- NOTE | 2020-12-27 13:01 | ECG_ITS ---
Hook-up date: 2020-12-27 13:11:00 Duration: 25:45:00 Test Indications: FREQ. PVC'S, PAC'S Medications: [id number] QRS complexes 22 Ventricular ectopics which represent <1 % of total QRS comp. 1 Supraventricular ectopics which represent <1 % of total QRS comp. * Paced QRS complexs which represent % of total QRS comp. VENTRICULAR ECTOPY 22 Isolated 0 Bigeminal Cycles 0 Couplets 0 Runs 0 Beats in Runs * Beats LONGEST at * BPM at :: -- * Beats FASTEST at * BPM at :: -- SUPRAVENTRICULAR ECTOPY 1 Isolated 0 Couplets 0 Runs 0 Beats in Runs * Beats LONGEST at * BPM at :: -- * Beats FASTEST at * BPM at :: -- HEART RATES 43 MIN at 03:41:57 2020-12-28 77 AVG 185 MAX at 11:54:06 2020-12-28 LONGEST RR 2.0320 secs at 01:47:53 2020-12-28 S-T LEVELS Channel 1 - 128 mm at 13:11:00 2020-12-27 - 128 mm at 13:11:00 2020-12-27 Channel 2 - 128 mm at 13:11:00 2020-12-27 - 128 mm at 13:11:00 2020-12-27 Channel 3 - 128 mm at 03:23:01 -- - 128 mm at 03:23:01 Underlying rhythm is sinus; Average ventricular rate 77/min; range 43-185/min; Rare PVCs; No sustained arrhythmias; Brief nighttime pause (2 sec); Patient did not report any symptoms in the diary Referred By: Eddy Hunter Overread By: FEROZ UGARTE
== END ==
LOC: HO.CARD 12:57
PROVIDERS: Visit Provider Internal Medicine
DX: I49.3 Ventricular premature depolarization (principal)
CPT/HCPCS: 93225; 93226

== ENCOUNTER 2021-01-05 16:09 | Outpatient (REF) | payer OTHER, SELFPAY ==
[2021-01-05 17:31] LABS: Rheumatoid Factor < 15.0 IU/mL (<15.0)
[2021-01-05 18:08] LABS: Erythrocyte Sedimentation Rate 10 MM/HR (0-20)
== END 2021-01-05 16:10 | disposition home or self-care (01) ==
LOC: HO.LAB 16:09
PROVIDERS: Visit Provider Psychiatry & Neurology Neurology
DX: R25.3 Fasciculation (principal)
CPT/HCPCS: 36415; 82550; 85652; 86038; 86039; 86431

== ENCOUNTER 2021-01-20 11:39 | Outpatient (REF) | payer OTHER, SELFPAY ==
[2021-01-21 13:06] LABS: Anti Nuclear Antibody Screen NEGATIVE (NEGATIVE)
== END 2021-01-20 11:40 | disposition home or self-care (01) ==
LOC: HO.LAB 11:39
PROVIDERS: Visit Provider Psychiatry & Neurology Neurology
DX: R25.3 Fasciculation (principal)
CPT/HCPCS: 36415; 86038; 86039